=== PATIENT | male | born 1985 | race Caucasian/White ===

== ENCOUNTER 2025-09-02 18:35 | Emergency (ER) | payer MEDICAID ==
[~2025-09-02] VITALS: Ht 165.1 cm; Wt 68.0 kg
[2025-09-02 18:41] VITALS: O2SAT 98
[2025-09-02] MEDS: IBUPROFEN 600MG TABLET PO ONE (21:02)
[2025-09-02] MEDS ORDERED: IBUP-2028 MT (21:38)
[2025-09-02] MEDS ORDERED: BO1 TP (21:40)
[2025-09-02 22:20] VITALS: BP 136/84; PULSE 94; RESP 18; TEMP 36.8; O2SAT 100
== END 2025-09-02 22:31 | disposition home or self-care (01) ==
LOC: ER 18:35
DX: S01.112A Laceration without foreign body of left eyelid and periocular area, initial encounter (principal); W19.XXXA Unspecified fall, initial encounter; Y93.89 Activity, other specified; Y92.89 Other specified places as the place of occurrence of the external cause; Y99.8 Other external cause status
CPT/HCPCS: 73110; 73130; 12011; 29125; 99284; Z7610